=== PATIENT | female | born 1985 | race Caucasian/White ===

== ENCOUNTER 2017-05-12 18:49 | Observation (INO) | payer SELFPAY ==
[2017-05-12 19:09] VITALS: TEMP 98; O2SAT 98
--- NOTE | 2017-05-12 20:05 | ED PDOC ---
Arrival/HPI - General Chief Complaint: Abdominal Pain Time Seen by Provider: 05/12/17 19:29 Historian: Patient - History of Present Illness Narrative History of Present Illness (Text): 05/12/17 20:04 31 year old female, with no significant past medical history, presents to the emergency department complaining of intermittent pain to b/l flank and upper abdomen since January. Initially patient went to a hospital in [place] and was given antibiotics. Patient notes pain is more persistent underneath ribs. Symptoms have been ongoing for 2-6 months and became worse yesterday. Also, patient noticed pain is worse in the evening. Patient denies of any fever, cough , nausea, vomiting, diarrhea, chest pain, shortness of breath, any past abdominal surgery, or any other complaints. She does add that she was told in the past she had hydronephrosis. No PMD Time/Duration: < month (2-6 months) Symptom Onset: Gradual Symptom Course: Unchanged Activities at Onset: Rest, Light Past Medical History - Provider Review Nursing Documentation Reviewed: Yes - Infectious Disease Hx of Infectious Diseases: None - Reproductive Menopause: No - Psychiatric Hx Substance Use: No Family/Social History - Physician Review Nursing Documentation Reviewed: Yes Family/Social History: Diabetes (father), CAD/NE Smoking Status: Unknown If Ever Smoked Hx Alcohol Use: No Hx Substance Use: No Allergies/Home Meds Allergies/Adverse Reactions: Allergies No Known Allergies Allergy (Verified 05/12/17 19:09) Review of Systems - Physician Review All systems were reviewed & negative as marked: Yes - Review of Systems Constitutional: absent: Fevers Respiratory: absent: SOB, Cough Cardiovascular: absent: Chest Pain Gastrointestinal: Abdominal Pain (upper abdominal pain (mostly underneath ribs)) . absent: Diarrhea, Nausea, Vomiting Musculoskeletal: Other (b/l flank pain) Physical Exam Vital Signs Reviewed: Yes Vital Signs Temp Pulse Resp BP Pulse Ox 05/12/17 23:44 17 98 05/12/17 23:38 64 18 108/66 98 05/12/17 19:06 98 F 70 16 110/79 98 Temperature: Afebrile Blood Pressure: Normal Pulse: Regular Respiratory Rate: Normal Appearance: Positive for: Well-Appearing Pain Distress: None Mental Status: Positive for: Alert and Oriented X 3 - Systems Exam Head: Present: Atraumatic, Normocephalic Pupils: Present: PERRL Extroacular Muscles: Present: EOMI Conjunctiva: Present: Normal Mouth: Present: Moist Mucous Membranes Neck: Present: Normal Range of Motion Respiratory/Chest: Present: Clear to Auscultation, Good Air Exchange. No: Respiratory Distress, Accessory Muscle Use Cardiovascular: Present: Regular Rate and Rhythm, Normal S1, S2. No: Murmurs Abdomen: Present: Normal Bowel Sounds. No: Tenderness, Distention, Peritoneal Signs, Rebound, Guarding, Mass/Organomegaly Back: Present: Normal Inspection. No: CVA Tenderness, Midline Tenderness, Paraspinal Tenderness Upper Extremity: Present: Normal Inspection. No: Cyanosis, Edema Lower Extremity: Present: Normal Inspection. No: Edema Neurological: Present: GCS=15, CN II-XII Intact, Speech Normal Skin: Present: Warm, Dry, Normal Color. No: Rashes Psychiatric: Present: Alert, Oriented x 3, Normal Insight, Normal Concentration Medical Decision Making ED Course and Treatment: 05/12/17 20:07 Impression: 31 year old female with b/l flank pain and upper abdominal pain. No acute findings on physical exam. DDx: pyelonephritis, biliary colic, dyspepsia Plan: -- Abdominal Ultrasound -- Labs -- Pepcid -- Urinalysis -- Urine Culture -- Pt placed in ED observation - Lab Interpretations Lab Results: Lab Results 05/12/17 19:48: Urine Color Yellow, Urine Appearance Slight-cloudy, Urine pH 6.5 , Ur Specific [place] 1.010, Urine Protein Negative, Urine Glucose (UA) Negative , Urine Ketones Negative, Urine Blood Large H, Urine Nitrate Negative, Urine Bilirubin Negative, Urine Urobilinogen 0.2, Ur Leukocyte Esterase Moderate H, Urine RBC 0 - 2, Urine WBC 2 - 5, Ur Epithelial Cells 1 - 3, Urine Bacteria Mod - RAD Interpretation Narrative RAD Interpretations (Text): 05/12/17 22:07 US abd : FINDINGS: Liver: Normal echogenicity. No mass. No intrahepatic bile duct dilatation. Gallbladder: No gallstones. No wall thickening. No pericholecystic fluid. No sonographic Moses's sign. Common bile duct: No dilatation. No calculi. Pancreas: Unremarkable as visualized. Kidneys: Normal echogenicity. Mild pelvocaliectasis of LEFT kidney. Spleen: No splenomegaly. Aorta: Unremarkable. No aneurysm. Inferior vena cava: Unremarkable. Free fluid: No significant free fluid. IMPRESSION: 1. Mild pelvocaliectasis of LEFT kidney. Dictated and Authenticated by: Horace Beth MD 05/12/2017 9:25 PM Eastern Time ([place] & [place]) Radiology Orders: 05/12/17 19:58 ABDOMEN COMPLETE [US] Stat - Medication Orders Current Medication Orders: Discontinued Medications Famotidine (Pepcid) 20 mg IVP STAT STA Stop: 05/12/17 19:59 Last Admin: 05/12/17 20:35 Dose: 20 mg IVP Administration Document 05/12/17 20:35 [email or web address] (Rec: 05/12/17 20:35 [email or web address] [email or web address]) Charges for Administration # of IVP Administrations 1 Nitrofurantoin Macrocrystals (Macrobid) 100 mg PO ONCE ONE Stop: 05/12/17 23:19 Last Admin: 05/12/17 23:41 Dose: 100 mg ED OBSERVATION Date of observation admission: 05/12/17 Time of observation admission: 20:00 - Observation admission statement Patient is being placed in observation because:: abdominal pain and flank pain - Goals of Observation Goals of observation are:: to monitor signs and symptoms - Progress Note Progress Note: 05/11/17 22:00 Progress Notes: Lab results reviewed : uhcg (-), UA shows +UTI. US still pending. Patient going to US. Patient returned from US, results pending. Patient is laying in bed comfortably with no other complaints. 05/13/17 00:00 Abd US : mild hydro on the L side with no other acute findings. On reevaluation, the patient is laying comfortably in no acute distress, has no additional complaints at this time. On exam, abdomen is soft with no tenderness , no guarding and no rebound, no CVA tenderness. Lab and US results reviewed with the patient. Dx of UTI d/w the patient. Given macrobid po. Instructed to follow up with referral provided in 1-2 days without fail. Advised to take medication as prescribed. Return to the emergency room at any time for any new or worsening symptoms. Patient states she fully agrees with and understands discharge instructions. States that she agrees with the plan and disposition. Verbalized and repeated discharge instructions and plan. I have given the patient opportunity to ask any additional questions. - PA / COMPLAINT CLERK / Resident Statement /DO has reviewed & agrees with the documentation as recorded. - Scribe Statement The provider has reviewed the documentation as recorded by the Get Riley Provider Get Attestation: All medical record entries made by the Get were at my direction and personally dictated by me. I have reviewed the chart and agree that the record accurately reflects my personal performance of the history, physical exam, medical decision making, and the department course for this patient. I have also personally directed, reviewed, and agree with the discharge instructions and disposition. Disposition/Present on Arrival - Present on Arrival Any Indicators Present on Arrival: No History of DVT/PE: No History of Uncontrolled Diabetes: No Urinary Catheter: No History of Decub. Ulcer: No History Surgical Site Infection Following: None - Disposition Have Diagnosis and Disposition been Completed?: Yes Diagnosis: UTI (urinary tract infection), Abdominal pain Disposition: HOME/ ROUTINE Disposition Time: 20:00 (Patient was placed in ED observation) Patient Plan: Discharge Patient Problems: Current Active Problems Problem Status Onset Abdominal pain Acute UTI (urinary tract infection) Acute Condition: STABLE
[2017-05-12 20:26] LABS: PH,URINE 6.5 (4.7-8.0); URINE BILIRUBIN NEGATIVE (NEGATIVE); URINE BLOOD LARGE (NEGATIVE); URINE GLUCOSE (UA) NEGATIVE (NEGATIVE); URINE KETONE NEGATIVE (NEGATIVE); URINE LEUKOCYTE ESTERASE MODERATE Leu/uL (NEGATIVE); URINE PROTEIN NEGATIVE mg/dL (<30 mg/dL); URINE UROBILINOGEN 0.2 E.U./dL (<1 E.U./dL)
[2017-05-12 20:28] LABS: URINE COLOR YELLOW (YELLOW)
[2017-05-12 20:29] LABS: URINE APPEARANCE SLIGHT-CLOUDY (CLEAR)
[2017-05-12 20:43] LABS: BASO # 0.02 K/mm3 (0.0-2.0); BASO % 0.3 % (0.0-3.0); EOS # 0.1 (0.0-0.7); EOS % 1.4 % (1.5-5.0); GRAN # 3.7 (1.4-6.5); GRAN % 58.1 % (50.0-68.0); HEMATOCRIT 41.9 % (36.0-48.0); LYMPH % 31.1 % (22.0-35.0); MEAN CELL VOLUME 90.9 fl (80.0-105.0); MEAN CORPUSCULAR HEMOGLOBIN 31.5 pg (25.0-35.0); MEAN CORPUSCULAR HGB CONC 34.6 g/dl (31.0-37.0); MEAN PLATELET VOLUME 10.2 fl (7.0-11.0); MONO # 0.6 (0.1-0.6); MONO % 9.1 % (1.0-6.0); RED CELL DISTRIBUTION WIDTH 13.7 % (11.5-14.5); WHITE BLOOD COUNT 6.4 10^3/ul (4.5-11.0)
[2017-05-12 20:56] LABS: URINE BACTERIA MOD (NEG); URINE RBC 0 - 2 /hpf (0-2)
--- NOTE | 2017-05-12 21:25 | US ---
EXAM: US Abdomen Complete CLINICAL HISTORY: 31 years old, female; Pain; Abdominal pain; Additional info: Abd pain, h/o hydroneprhosis TECHNIQUE: Real-time ultrasound of the abdomen (complete) with image documentation. COMPARISON: No relevant prior studies available. FINDINGS: Liver: Normal echogenicity. No mass. No intrahepatic bile duct dilatation. Gallbladder: No gallstones. No wall thickening. No pericholecystic fluid. No sonographic Moses's sign. Common bile duct: No dilatation. No calculi. Pancreas: Unremarkable as visualized. Kidneys: Normal echogenicity. Mild pelvocaliectasis of LEFT kidney. Spleen: No splenomegaly. Aorta: Unremarkable. No aneurysm. Inferior vena cava: Unremarkable. Free fluid: No significant free fluid. IMPRESSION: 1. Mild pelvocaliectasis of LEFT kidney.
[2017-05-12 22:42] LABS: ALB/GLOB RATIO 1.5 (1.1-1.8); ALKALINE PHOSPHATASE 46 U/L (38-126); ALT/SGPT 20 U/L (7-56); AST/SGOT 19 U/L (14-36); BILIRUBIN,TOTAL 0.6 mg/dL (0.2-1.3); BLOOD UREA NITROGEN 13 mg/dL (7-21); CARBON DIOXIDE 24 mmol/L (21-33); CHLORIDE 106 mmol/L (98-107); GFR AFRICAN-AMERICAN > 60; GLUCOSE,RANDOM 78 mg/dL (70-110); LIPASE 47 U/L (23-300); POTASSIUM 4.5 mmol/L (3.6-5.0); SODIUM 142 mmol/L (132-148)
[2017-05-12 23:39] VITALS: BP 108/66; PULSE 64
[2017-05-12 23:45] VITALS: RESP 17
== END 2017-05-13 00:30 | disposition home or self-care (01) ==
LOC: ED 18:49 → EROBSV 20:00
PROVIDERS: ADMIT Emergency Medicine; ATTEND Emergency Medicine
DX: N39.0 Urinary tract infection, site not specified (principal); R10.9 Unspecified abdominal pain
CPT/HCPCS: 36415; 76700; 80053; 81001; 83690; 85025; 87086; 96374; 99282; G0378

== ENCOUNTER 2017-05-15 11:14 | Emergency (ER) | payer OTHER ==
[2017-05-15 11:47] VITALS: TEMP 97.8; O2SAT 100
--- NOTE | 2017-05-15 11:50 | ED PDOC ---
Arrival/HPI - General Chief Complaint: Chest Pain Time Seen by Provider: 05/15/17 11:17 Historian: Patient - History of Present Illness Narrative History of Present Illness (Text): 05/15/17 11:44 A 31 year old female, with no significant past medical history, presents to the emergency department with chest pain. TV Test Rider was used ([id number]) . The patient describe the pain as chest pressure and states that the pain has been getting worse over the past several months. She notes that the discomfort becomes worse at night. She states that she has been experiencing low back pain. The patient denies fevers, chills, headache, dizziness, shortness of breath, dyspnea on exertion, cough, abdominal pain, nausea, vomiting, diarrhea, neck pain, urinary/bowel changes, or any other complaint. Time/Duration: Other (1 month) Symptom Onset: Sudden Activities at Onset: Rest Context: Home Past Medical History - Provider Review Nursing Documentation Reviewed: Yes - Infectious Disease Hx of Infectious Diseases: None - Cardiac Hx Cardiac Disorders: No - Pulmonary Hx Respiratory Disorders: No - Neurological Hx Neurological Disorder: No - HEENT Hx HEENT Disorder: No Hx Blind: No - Renal Hx Renal Disorder: No - Endocrine/Metabolic Hx Endocrine Disorders: No - Hematological/Oncological Hx Blood Disorders: No - Integumentary Hx Dermatological Disorder: No - Musculoskeletal/Rheumatological Hx Musculoskeletal Disorders: No Hx Arthritis: No - Gastrointestinal Hx Gastrointestinal Disorders: No - Genitourinary/Gynecological Hx Genitourinary Disorders: Yes Hx Urinary Tract Infection: Yes - Psychiatric Hx Psychophysiologic Disorder: No Hx Substance Use: No Family/Social History - Physician Review Nursing Documentation Reviewed: Yes Family/Social History: No Known Family HX Smoking Status: Never Smoked Hx Alcohol Use: No Hx Substance Use: No Allergies/Home Meds Allergies/Adverse Reactions: Allergies No Known Allergies Allergy (Verified 05/15/17 11:22) Review of Systems - Physician Review All systems were reviewed & negative as marked: Yes - Review of Systems Constitutional: absent: Fevers, Night Sweats ENT: absent: Sore Throat Respiratory: absent: SOB, Cough Cardiovascular: Chest Pain (Chest pain: pressure) Gastrointestinal: absent: Abdominal Pain, Stool Changes, Diarrhea, Nausea, Vomiting Genitourinary Female: absent: Urine Output Changes Musculoskeletal: Back Pain (Low back pain). absent: Neck Pain Neurological: absent: Headache, Dizziness Psychiatric: Anxiety. absent: Depression, Suicidal Ideation Physical Exam Vital Signs Reviewed: Yes Vital Signs Temp Pulse Resp BP Pulse Ox 05/15/17 14:39 72 16 123/67 100 05/15/17 11:29 97.8 F 78 14 136/81 100 Temperature: Afebrile Blood Pressure: Normal Pulse: Regular Respiratory Rate: Normal Appearance: Positive for: Well-Appearing, Non-Toxic, Comfortable Pain Distress: None Mental Status: Positive for: Alert and Oriented X 3, other (Appears Anxious) - Systems Exam Head: Present: Atraumatic, Normocephalic Pupils: Present: PERRL Extroacular Muscles: Present: EOMI Conjunctiva: Present: Normal Mouth: Present: Moist Mucous Membranes Neck: Present: Normal Range of Motion Respiratory/Chest: Present: Clear to Auscultation, Good Air Exchange, Tender to Palpation (Chest wall tenderness). No: Respiratory Distress, Accessory Muscle Use Cardiovascular: Present: Regular Rate and Rhythm, Normal S1, S2. No: Murmurs Abdomen: Present: Normal Bowel Sounds. No: Tenderness, Distention, Peritoneal Signs Back: Present: Normal Inspection. No: CVA Tenderness, Midline Tenderness, Paraspinal Tenderness Upper Extremity: Present: Normal Inspection. No: Cyanosis, Edema Lower Extremity: Present: Normal Inspection. No: Edema Neurological: Present: GCS=15, CN II-XII Intact, Speech Normal Skin: Present: Warm, Dry, Normal Color. No: Rashes Psychiatric: Present: Alert, Oriented x 3, Normal Insight, Normal Concentration , Anxious (Patient appears anxious.) Medical Decision Making ED Course and Treatment: 05/15/17 11:53 Impression: A 31 year old female presents with chest pain. On exam, the patient appears anxious and chest wall tenderness on palpation. Differential Diagnosis included but are not limited to: Anxiety vs Costrochondritis vs MSK vs ACS Plan: -- EKG -- Chest X-ray -- Pepcid and Ativan -- Reassess and disposition Prior Visits: Notes and results from previous visits were reviewed. Patient was last seen in the emergency department on 05/12/2017. The patient was treated for intermittent pain to b/l flank and upper abdomen. The patient was discharged home. Progress Notes: EKG: Ordered, reviewed, and independently interpreted the EKG. Rate : 79 BPM Rhythm : NSR CHEST X-RAY Dictator : Edd Borges MD Report Date : 05/15/2017 13:55:19 IMPRESSION: No active disease. 05/15/17 14:25: Patient had labs drawn 3 days ago, CBC, CMP and UA. She was sent home with treatment of UTI. Currently she has low back pain but it's much improved she states. She has no CVAT. TV Test Rider used on reevaluation ([employer]- [id number]). Patient symptoms have significantly improved. explained to patient that her EKG and Chest X-ray are normal. She states that the Ativan helped in relieving her symptoms and notes that she has been under stress. 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 She was instructed to continue the medications prescribed to her during her previous visit. - RAD Interpretation Radiology Orders: 05/15/17 11:43 CHEST TWO VIEWS (PA/LAT) [RAD] Stat - EKG Interpretation Interpreted by ED Physician: Yes Type: 12 lead EKG - Medication Orders Current Medication Orders: Discontinued Medications Famotidine (Pepcid) 20 mg PO STAT STA Stop: 05/15/17 11:44 Last Admin: 05/15/17 12:00 Dose: 20 mg Lorazepam (Ativan) 1 mg PO ONCE ONE PRN Reason: Protocol Stop: 05/15/17 11:44 Last Admin: 05/15/17 12:01 Dose: 1 mg - Scribe Statement The provider has reviewed the documentation as recorded by the [facility] Provider Scribe Attestation: All medical record entries made by the Get were at my direction and personally dictated by me. I have reviewed the chart and agree that the record accurately reflects my personal performance of the history, physical exam, medical decision making, and the department course for this patient. I have also personally directed, reviewed, and agree with the discharge instructions and disposition. Disposition/Present on Arrival - Present on Arrival Any Indicators Present on Arrival: No History of DVT/PE: No History of Uncontrolled Diabetes: No Urinary Catheter: No History of Decub. Ulcer: No History Surgical Site Infection Following: None - Disposition Have Diagnosis and Disposition been Completed?: Yes Diagnosis: Chest pain Disposition: HOME/ ROUTINE Disposition Time: 14:30 Patient Plan: Discharge Condition: IMPROVED Discharge Instructions (ExitCare): Chest Pain (ED), Anxiety (ED) Additional Instructions: Ms Ngo, thank you for letting us take care of you today. Your provider was Dr. Rosario. You were treated for Chest Pain. The emergency medical care you received today was directed at your acute symptoms. If you were prescribed any medication, please fill it and take as directed. It may take several days for your symptoms to resolve. Return to the Emergency Department if your symptoms worsen, do not improve, or if you have any other problems. Please contact your doctor or call one of the physicians/clinics you have been referred to that are listed on the Patient Visit Information form that is included in your discharge packet. Bring any paperwork you were given at discharge with you along with any medications you are taking to your follow up visit. Our treatment cannot replace ongoing medical care by a primary care provider (PCP) outside of the emergency department. Thank you for allowing the [facility] team to be part of your care today. If you had an X-Ray or CT scan: A Radiologist will review the ED reading if any change in treatment is needed we will contact you. If you had a blood, urine, or wound culture: It will take several days for the results, if any change in treatment is needed we will contact you. If you had an STI test: It will take 48 hours for the results. Please call after 1 week if you have not heard back. Prescriptions: ALPRAZolam [Xanax] 0.25 mg PO Q8 #5 tab Referrals: [facility] [Outside] - Follow up with primary Sun Berumen, [Non-Staff] - Follow up with primary Giovani Rhodes MD [Staff Provider] - Follow up with primary Forms: [employer] ([place]), WORK NOTE
--- NOTE | 2017-05-15 13:56 | RAD ---
HISTORY: Chest pain 3 weeks duration. COMPARISON: No prior. TECHNIQUE: Chest PA and lateral FINDINGS: LUNGS: No active pulmonary disease. PLEURA: No significant pleural effusion identified. No pneumothorax apparent. CARDIOVASCULAR: Normal. OSSEOUS STRUCTURES: No significant abnormalities. VISUALIZED UPPER ABDOMEN: Normal. OTHER FINDINGS: None. IMPRESSION: No active disease.
[2017-05-15 14:40] VITALS: BP 123/67; PULSE 72; RESP 16
--- NOTE | 2017-05-16 08:28 | CARD ---
APPROVED REPORT EKG Measurement Heart [id number] <Conclusion> Normal sinus rhythm with sinus arrhythmia Normal ECG
== END 2017-05-15 14:39 | disposition home or self-care (01) ==
LOC: ED 11:14
DX: R07.9 Chest pain, unspecified (principal)